=== PATIENT | female | born 1990 | race Caucasian/White ===

== ENCOUNTER 2020-07-12 18:00 | Emergency (ER) | payer SELFPAY ==
[2020-07-12 18:28] VITALS: BP 142/95; PULSE 95; RESP 20; TEMP 36.6; O2SAT 98
--- NOTE | 2020-07-12 18:38 | ED.URI ---
HPI - URI/Sore Throat General Chief Complaint: Upper Respiratory Infection Stated Complaint: Cough/Runny Nose Time Seen by Provider: 07/12/20 18:40 Source: patient and RN notes reviewed Mode of arrival: ambulatory Limitations: no limitations History of Present Illness HPI Narrative: 30 year old female who resents to express care with 4 day history of sinus drainage, aching ears, no sore throat or any acute dyspnea voiced. Patient states that she has acute cough which is productive at times, increased at night and is interfering with her sleep. Patient states that she has been taking Benadryl for her symptoms. Patient relays history of sinus problems in the past, denies any fevers, chills or sweats, denies any acute headache pain or facial pressure. MD elicited complaint: cough, rhinorrhea and nasal congestion Onset (ago): day(s) (4) Severity: moderate Pain scale (0-10): 4 Description of mucous: clear and yellow Able to tolerate fluids by mouth: Yes Exacerbating factors: nothing Relieving factors: nothing Associated symptoms: rhinorrhea, nasal congestion and cough (ear aches) Treatments prior to arrival: other (Benadryl) Related Data Allergies Allergy/AdvReac Type Severity Reaction Status Date / Time DIPHENHYDRAMINE HCL AdvReac Mild Other Uncoded 01/09/19 11:41 Review of Systems Review of Systems: Narrative: CONSTITUTIONAL: Denies fever, chills, or sweats. EYES: Denies visual changes, redness, or discharge. ENT: Positive rhinorrhea, congestion,no sore throat, positive otalgia. CARDIOVASCULAR: Denies chest pain, palpitations, or edema. RESPIRATORY: Positive cough denies acute dyspnea. GASTROINTESTINAL: Denies abdominal pain, nausea, vomiting, or diarrhea. GENITOURINARY: Denies dysuria or hematuria. SKIN: Denies rash or itching. MUSCULOSKELETAL:History of chronic back pain,no other joint pain, or myalgia. NEUROLOGIC: Denies headache, numbness, or weakness. PSYCHIATRIC: Denies anxiety or depression. All systems reviewed & are unremarkable except as noted in HPI and below PMFSH Past Medical History Medical History (Updated 07/15/20 @ 15:32 by Brigitte Barber NP) Chronic back pain URI, acute UTI (urinary tract infection) Surgical History Surgical History (Updated 07/12/20 @ 19:07 by Brigitte Barber NP) H/O tubal ligation History of tonsillectomy Hx of hemorrhoidectomy Previous section Family History Family History (Updated 07/15/20 @ 15:32 by Brigitte Barber NP) Mother Diabetes mellitus Social History Social History (Updated 07/15/20 @ 15:44 by Brigitte Barber NP) Years smoked: 15 Smoking status: Current every day smoker Tobacco type: cigarettes Alcohol intake: current Alcohol use details: rare social Substance use: current Substance use type: marijuana Living arrangements: with family Gender identity (if verbalized by the patient): Female Comments At time of signature, agree with nursing past medical, surgical, social and family history. There is no relevant family history pertinent to the presenting complaint Exam Narrative: Exam Narrative: GENERAL: Well-appearing, well-nourished, and in no acute distress. HEAD: Normocephalic, atraumatic. EYES: PERRLA and EOMI. ENT: Nares red and swollen, clear to light yellow rhinorrhea No epistaxis. Mucous membranes moist.TM's normal with good light reflex, throat red uvula midline no swelling noted post nasal drainage noted NECK: Supple.no lymphadenopathy CHEST: Clear to auscultation. No respiratory distress.acute cough productive at times, HEART: Regular rate and rhythm. No murmur heard. Normal peripheral pulses. ABDOMEN: Soft, nontender, nondistended, normal active bowel sounds. EXTREMITIES: Normal range of motion. No edema. SKIN: Warm, dry, no rash. NEURO: No focal deficits. Alert and oriented x3. Course Vital Signs Vital signs: Vital Signs Temperature 36.6 C 07/12/20 18:28 Pulse Rate 95 07/12/20 18:28 Respirato
== END 2020-07-12 19:39 | disposition home or self-care (01) ==
PROVIDERS: Emergency Provider Registered Nurse
DX: R05 Cough (principal); J06.9 Acute upper respiratory infection, unspecified
CPT/HCPCS: 99213; G0463

== ENCOUNTER 2023-07-29 21:30 | Emergency (ER) | payer MEDICAID, SELFPAY ==
--- NOTE | ~2023-07-29 | XR_ITS ---
EXAMINATION: XR foot RT min 3V DATE: 07/29/2023 21:51 INDICATION: Right foot injury and swelling. TECHNIQUE: 3 views of right foot were obtained. COMPARISON: None. FINDINGS: Bone alignment is normal. There is heterotopic ossification dorsal to talus. Joint spaces a re normal. There is foot soft tissue swelling. IMPRESSION: 1. Heterotopic calcification dorsal to talus, which may be an acute avulsion fracture or a chronic fi nding. Reviewed, dictated and finalized at location E. IMPRESSION: 1. Heterotopic calcification dorsal to talus, which may be an acute avulsion fr acture or a chronic finding.
[2023-07-29 21:31] VITALS: BP 158/108; PULSE 95; RESP 16; TEMP 36.8; O2SAT 99
[2023-07-29] MEDS: KETOROLAC 30 MG/ML VIAL (*BKC) IM (21:56)
--- NOTE | 2023-07-29 22:00 | ED.LOWEXIN ---
HPI - Extremity Injury (Lower) General Chief Complaint: Extremity Injury, Lower Stated Complaint: right foot injury Time Seen by Provider: 07/29/23 21:39 Source: patient Mode of arrival: ambulatory Limitations: no limitations History of Present Illness HPI Narrative: 33-year-old here with right foot injury. She was walking on a deck and then stepped right off this back. Fell about 1 step and landed on her right foot and did not fall to the ground but felt that pop in her foot and has since been having pain. Related Data Allergies Allergy/AdvReac Type Severity Reaction Status Date / Time DIPHENHYDRAMINE HCL AdvReac Mild Other Uncoded 07/29/23 21:42 Review of Systems Review of Systems: All systems reviewed & are unremarkable except as noted in HPI and below PMFSH Past Medical History Medical History Chronic back pain URI, acute UTI (urinary tract infection) Surgical History Surgical History H/O tubal ligation History of tonsillectomy Hx of hemorrhoidectomy Previous section Family History Family History Mother Diabetes mellitus Social History Social History Years smoked: 15 Smoking status: Current every day smoker Tobacco type: cigarettes Alcohol intake: current Alcohol use details: rare social Substance use: current Substance use type: marijuana Living arrangements: with family Gender identity (if verbalized by the patient): Female Exam Narrative: Constitutional: Generally well appearing, no acute distress Head: Atraumatic, no deformities. Eyes: Pupils equal, round, and reactive to light. Neck: Supple, no tracheal deviation, no JVD. ENMT: Mucous membranes moist Cardiovascular: S1, S2 auscultated. No murmurs, rubs, or gallops. No S3/S4. Normal Distal pulses. No peripheral edema. Respiratory: Lung sounds equal. No wheezes, rales, or rhonchi. Gastrointestinal: Abdomen was soft, nondistended Musculoskeletal: Normal muscle tone and bulk. Has some ecchymosis over the dorsal aspect of the right foot with some tenderness over that area with mild swelling. No deformities. Distally neurovascularly intact Skin: No rashes. Neurological: Strength 5/5 in extremities. Distal sensation intact. Mental Status: Awake, alert and oriented x3. Follows commands Course Vital Signs Vital signs: Vital Signs Temperature 36.8 C 07/29/23 21:31 Pulse Rate 95 07/29/23 21:31 Respiratory Rate 16 07/29/23 21:31 Blood Pressure 158/108 H 07/29/23 21:31 Pulse Oximetry 99 07/29/23 21:31 Oxygen Delivery Room Air 07/29/23 21:31 Temperature 36.8 C 07/29/23 21:31 Pulse Rate 95 07/29/23 21:31 Respiratory Rate 16 07/29/23 21:31 Blood Pressure 158/108 H 07/29/23 21:31 Pulse Oximetry 99 07/29/23 21:31 Oxygen Delivery Room Air 07/29/23 21:31 MDM - Extremity Injury (Lower) MDM Narrative Medical decision making narrative: 33-year-old female presenting with right foot injury. Exam she has got some ecchymosis and swelling over the dorsum of the right foot. No deformity. Generally otherwise well appearing. No other trauma. Obtaining x-ray for fracture. Given Toradol. Denies any chance of . X-ray shows small possible talus avulsion fracture. Consistent with the patient's tenderness is. Appears very minor. Will place a posterior mold, make patient nonweightbearing, give crutches and prescription for naproxen. Given Podiatry follow-up. Pt feeling improved and would like to go home at this point. Return precautions were given to the patient include any new or worsening symptoms or development of and not limited to any chest pain, shortness of breath, lightheadedness, abdominal pain, fevers, chills. Patient understands and agrees. T
== END 2023-07-29 23:17 | disposition home or self-care (01) ==
PROVIDERS: Emergency Provider Emergency Medicine
DX: S92.154A Nondisplaced avulsion fracture (chip fracture) of right talus, initial encounter for closed fracture (principal); F17.210 Nicotine dependence, cigarettes, uncomplicated; Z87.440 Personal history of urinary (tract) infections; W10.9XXA Fall (on) (from) unspecified stairs and steps, initial encounter
CPT/HCPCS: 29515; 73630; 96372; 99284; J1885

== ENCOUNTER 2024-01-28 13:15 | Emergency (ER) | payer OTHER, SELFPAY ==
[2024-01-28] VITALS (15 sets, daily range): BP systolic 159–177; BP diastolic 87–110; PULSE 65–102; RESP 15–27; TEMP 36.8; O2SAT 97–100
--- NOTE | 2024-01-28 13:20 | ED.GENADULT ---
HPI - General Adult General Chief complaint: Recheck/Abnormal Lab/Rx Stated complaint: ELEVATED BP Time Seen by Provider: 01/28/24 13:20 Source: patient Mode of arrival: ambulatory Limitations: no limitations History of Present Illness HPI narrative: This is a 33-year-old female patient sent to the emergency department by chest not when she was attempting to check in for drug rehabilitation. Patient was noted to be hypertensive at that time and was told that her blood pressure needed to be under 110 diastolic prior to being accepted. 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 Patient reports last use 2 days ago. patient notes anxiety, mild headache and mild nausea but no other complaints at this time. Related Data Allergies Allergy/AdvReac Type Severity Reaction Status Date / Time DIPHENHYDRAMINE HCL AdvReac Mild Other Uncoded 01/28/24 13:27 Review of Systems Review of Systems: All systems reviewed & are unremarkable except as noted in HPI and below PMFSH Past Medical History Medical History Chronic back pain URI, acute UTI (urinary tract infection) Surgical History Surgical History H/O tubal ligation History of tonsillectomy Hx of hemorrhoidectomy Previous section Family History Family History Mother Diabetes mellitus Social History Social History Years smoked: 15 Smoking status: Current every day smoker Tobacco type: cigarettes Alcohol intake: current Alcohol use details: rare social Substance use: current Substance use type: marijuana Living arrangements: with family Gender identity (if verbalized by the patient): Female Exam Narrative: GENERAL: Awake, alert, oriented, mildly anxious appearing with mild tremors HEAD: Normocephalic, atraumatic. ENT:? Mucous membranes moist. CHEST: Clear to auscultation.? No respiratory distress. HEART: Regular rate and rhythm. ? Normal peripheral pulses. ABDOMEN: Soft, nontender, nondistended. EXTREMITIES: Normal range of motion. No peripheral edema. SKIN: Warm dry normal color NEURO: Alert and oriented x3. PSYCH: Anxious mood and affect Course Course Emergency Course: Ordered labs and oral anti-hypertensives including amlodipine for sustained effect and clonidine for prompt effect with side effect benefit of anxiety improvement in drug withdrawal treatment. Reevaluation(s) Reevaluation #1: Blood pressure is still approximately 110 diastolic. Patient states that 1 of the oral medicines presumably clonidine she felt like it dropped her blood pressure too fast and she did not feel good after receiving it. We will use IV hydralazine instead. Date: 01/28/24 Time: 14:42 Reevaluation #2: 169/94 blood pressure. Date: 01/28/24 Time: 15:00 Vital Signs Vital signs: Vital Signs Temperature 36.8 C 01/28/24 13:23 Pulse Rate 102 H 01/28/24 13:23 Respiratory Rate 16 01/28/24 13:23 Blood Pressure 177/110 H 01/28/24 13:23 Pulse Oximetry 97 01/28/24 13:23 Oxygen Delivery Room Air 01/28/24 13:23 Temperature 36.8 C 01/28/24 13:23 Pulse Rate 102 H 01/28/24 13:23 Respiratory Rate 16 01/28/24 13:23 Blood Pressure 177/110 H 01/28/24 13:23 Pulse Oximetry 97 01/28/24 13:23 Oxygen Delivery Room Air 01/28/24 13:23 Medical Decision Making Differential Diagnosis Differential Diagnosis: Essential HTN, Hypertensive crisis, methamphetamine drug withdrawal are most likely. Vital Signs Vital Signs: Vital Signs Temperature 36.8 C 01/28/24 13:23 Pulse Rate 102 H 01/28/24 13:23 Respiratory Rate 16 01/28/24 13:23 Blood Pressure 177/110 H 01/28/24 13:23 Pulse Oximetry 97 01/28/24 13:23 Oxygen Delivery Room Air 01/28/24
[2024-01-28] MEDS: amLODIPine BESYLATE 5 MG TABLET PO (13:44)
[2024-01-28] MEDS: cloNIDine HCL 0.1 MG TABLET PO (13:45)
[2024-01-28 13:49] LABS: Basophils Absolute Auto 0.1 K/mm3 (0.0-0.1); Basophils Percent Auto 0.8 % (0.2-1.2); Eosinophils Absolute Auto 0.1 K/mm3 (0-0.3); Eosinophils Percent Auto 0.9 % (0-4.4); Hematocrit 39.7 % (37.0-47.0); Hemoglobin 12.2 g/dL (12.0-15.0); Immature Granulocyte Absolute 0.03 K/mm3 (0.00-0.031); Immature Granulocyte Percent A 0.4 % (0-0.5); Lymphocytes Absolute Auto 2.21 K/mm3 (0.9-3.2); Lymphocytes Percent Auto 28.6 % (18.3-44.2); Mean Corpuscular HGB Conc 30.7 g/dl (32-36); Mean Corpuscular Hemoglobin 24.8 pg (26-34); Mean Corpuscular Volume 80.7 fl (80-100); Mean Platelet Volume 8.8 fl (7.4-10.4); Monocytes Absolute Auto 0.5 K/mm3 (0.1-0.6); Monocytes Percent Auto 5.8 % (2.6-8.5); Neutrophils Absolute Auto 4.9 K/mm3 (1.3-6.7); Neutrophils Percent Auto 63.5 % (45.5-73.1); Platelet Count Result 411 k/mm3 (150-375); Red Blood Count 4.92 M/mm3 (4.2-5.4); Red Cell Distribution Width 14.8 % (11.5-14.5); White Blood Count 7.7 K/mm3 (4.5-10.0)
[2024-01-28 14:00] LABS: Creatine Kinase 79 U/L (30-135)
[2024-01-28 14:01] LABS: Alanine Aminotransferase 14 U/L (6-35); Albumin Level 4.5 g/dL (3.5-5.1); Alkaline Phosphatase 67 U/L (38-126); Anion Gap 9 mmol/L (4-12); Aspartate Amino Transferase 32 U/L (14-36); Bilirubin,Total 0.6 mg/dL (0.2-1.3); Blood Urea Nitrogen 17 mg/dL (7-17); Calcium 9.7 mg/dL (8.4-10.2); Carbon Dioxide 27 mmol/L (22-30); Chloride 103 mmol/L (98-107); Estimated CRCL calculation 95 ml/min; Estimated Glomerular Filt Rate > 60; Glucose 92 mg/dL (65-110); Magnesium 2.1 mg/dL (1.6-2.3); Potassium 3.4 mmol/L (3.4-5.0); Sodium 139 mmol/L (137-145)
[2024-01-28] MEDS: POTASSIUM CHLORIDE 20 MEQ ER TABLET 40 MEQ PO (15:04)
[2024-01-28] MEDS: hydrALAZINE HCL 20 MG/ML VIAL IV PUSH (15:05)
== END 2024-01-28 15:28 | disposition home or self-care (01) ==
PROVIDERS: Emergency Provider Nurse Practitioner
DX: I10 Essential (primary) hypertension (principal); F15.20 Other stimulant dependence, uncomplicated; F17.210 Nicotine dependence, cigarettes, uncomplicated; Z87.440 Personal history of urinary (tract) infections
CPT/HCPCS: 36415; 80053; 82550; 83735; 85025; 96374; 99284; A9270; J0360